=== PATIENT | female | born 1995 | race Caucasian/White ===

== ENCOUNTER → 2021-03-25 | Outpatient (REF) | payer OTHER, SELFPAY | LOC: M LAB REF 11:51 | PROVIDERS: ATTEND Obstetrics & Gynecology | DX: O08.0 Genital tract and pelvic infection following ectopic and molar pregnancy (principal) ==

== ENCOUNTER → 2022-01-13 | Outpatient (CLI) | payer OTHER | LOC: M WHC 10:38 | PROVIDERS: ATTEND Advanced Practice Midwife | DX: O24.919 Unspecified diabetes mellitus in pregnancy, unspecified trimester (principal) ==

== ENCOUNTER 2022-02-28 06:05 | Outpatient (CLI) | payer OTHER ==
[~2022-02-28] VITALS: Ht 162.6 cm; Wt 114.8 kg
[2022-02-28 06:37] VITALS: BP 128/78
[2022-02-28] MEDS ORDERED: MULTTAB20 PO (06:46)
== END 2022-02-28 09:36 | disposition home or self-care (01) ==
LOC: M LDO 06:05
PROVIDERS: ATTEND Obstetrics & Gynecology
DX: O47.1 False labor at or after 37 completed weeks of gestation (principal); O46.93 Antepartum hemorrhage, unspecified, third trimester; Z3A.39 39 weeks gestation of pregnancy; O24.419 Gestational diabetes mellitus in pregnancy, unspecified control; O99.213 Obesity complicating pregnancy, third trimester; E66.9 Obesity, unspecified
CPT/HCPCS: 59025; 76815; G0463

== ENCOUNTER 2022-03-03 05:53 | Outpatient (CLI) | payer OTHER ==
[~2022-03-03 05:53] MED LIST: MULTTAB20 PO
[2022-03-03 08:11] VITALS: BP 132/79
[2022-03-04] MEDS ORDERED: ACET325C5 PO (10:28)
== END 2022-03-03 09:28 | disposition home or self-care (01) ==
LOC: M LDO 05:53
PROVIDERS: ATTEND Obstetrics & Gynecology
DX: O47.1 False labor at or after 37 completed weeks of gestation (principal); O24.410 Gestational diabetes mellitus in pregnancy, diet controlled; Z3A.40 40 weeks gestation of pregnancy
CPT/HCPCS: 59025; G0463

== ENCOUNTER 2022-03-04 10:00 | Inpatient (IN) | payer OTHER ==
[2022-03-04] VITALS (35 sets, daily range): BP systolic 109–161; BP diastolic 55–100
[~2022-03-04] VITALS: Ht 165.1 cm; Wt 114.8 kg
[2022-03-04] MEDS ORDERED: ACET325C5 PO (10:28)
[2022-03-04] MEDS ORDERED: HOME MED LIST COMPLETE! XX SCH (10:30)
[2022-03-04] MEDS ORDERED: LACTATED RINGER'S 1000 ML IV STA (13:06)
[2022-03-04] MEDS ORDERED: OXYTOCIN INJ 10 UNITS/ML VIAL (J2590) IM PRN (13:10)
[2022-03-04] MEDS ORDERED: METHYLERGONOVINE MALEATE 0.2 MG/ML VIAL (J2210) IM PRN (13:10)
[2022-03-04] MEDS ORDERED: OXYTOCIN DRIP 30 UNITS in IV 1 EA IV SCH (13:10)
[2022-03-04] MEDS: LR 1,000 ML IV SCH ×4 (13:10→21:10)
[2022-03-04] MEDS ORDERED: TRANEXAMIC ACID INJection 1,000 MG in NS 100 ML IV PRN (13:10)
[2022-03-04] MEDS ORDERED: OXYTOCIN DRIP 30 UNITS in IV 1 EA IV PRN ×4 (13:10)
[2022-03-04] MEDS ORDERED: LIDOCAINE 1% MDV 20ML VIAL INFIL PRN (13:10)
[2022-03-04] MEDS ORDERED: CARBOPROST TROMETHAMINE 250 MCG/ML AMP IM PRN (13:10)
[2022-03-04 14:48] LABS: BASO # 0.1 10^3/uL (0.0-0.2); BASO % 0.5 % (0.0-1.0); EOS % 0.3 % (0.0-3.0); HEMATOCRIT 38.3 % (36.0-47.0); HEMOGLOBIN 13.1 g/dl (12.0-15.5); LYMPH # 1.6 10^3/uL (1.5-5.0); LYMPH % 13.7 % (24.0-44.0); MEAN CORPUSCULAR HEMOGLOBIN 29.4 pg (27.0-33.0); MEAN CORPUSCULAR HGB CONC 34.2 g/dl (32.0-36.5); MEAN CORPUSCULAR VOLUME 85.9 fl (80.0-96.0); MONO # 0.8 10^3/uL (0.0-0.8); MONO % 6.7 % (2.0-8.0); PLATELET COUNT, AUTOMATED 160 10^3/uL (150-450); RED BLOOD COUNT 4.46 10^6/uL (4.00-5.40); WHITE BLOOD COUNT 11.7 10^3/uL (4.0-10.0)
[2022-03-04] MEDS ORDERED: NALOXONE INJ 0.4MG/1ML VIAL (J2310 PER 1MG) IV PRN (15:40)
[2022-03-04] MEDS ORDERED: diphenhydrAMINE 50MG/ML VIAL (J1200) IV PRN (15:40)
[2022-03-04] MEDS ORDERED: ePHEDrine SULFATE 25 MG/5 ML(5MG/ML) SYRINGE IVP PRN (15:40)
[2022-03-04] MEDS ORDERED: ONDANSETRON 4MG 2ML VIAL IV PRN (15:40)
[2022-03-04] MEDS ORDERED: LR 500 ML IV PRN (15:40)
[2022-03-04] MEDS ORDERED: EPIDURAL/PCA KEYS XX PRN (15:40)
[2022-03-04] MEDS: FENTANYL/ROPIVACAINE/NACL BAG 100 ML EPIDURAL SCH ×2 (15:47→23:25)
[2022-03-04] MEDS ORDERED: OXYTOCIN 30 UNITS IN 0.9% NaCl 500ML IV BAG (J2590) As Ordered ONE (20:16)
[2022-03-04] MEDS ORDERED: ACETAMINOPHEN 500 MG TAB PO ONE (21:40)
[2022-03-05] VITALS (13 sets, daily range): BP systolic 113–156; BP diastolic 56–96
[2022-03-05] MEDS ORDERED: ACETAMINOPHEN TAB 650MG DOSE (2X325MG) PO PRN (05:05)
[2022-03-05] MEDS ORDERED: DIBUCAINE 1% OINTMENT 30GM TOP PRN (05:05)
[2022-03-05] MEDS ORDERED: ACETAMINOPHEN 500 MG TAB PO PRN (05:05)
[2022-03-05] MEDS ORDERED: OXYTOCIN DRIP 30 UNITS in IV 1 EA IV SCH (05:05)
[2022-03-05] MEDS ORDERED: ANUSOL HC CREAM 30GM TOP PRN (05:05)
[2022-03-05] MEDS ORDERED: RHOGAM 300 MCG (1500 IU) INJ (J2790) IM SCH (05:05)
[2022-03-05] MEDS ORDERED: IBUPROFEN 600MG TAB PO PRN (05:05)
[2022-03-05] MEDS ORDERED: METHYLERGONOVINE MALEATE 0.2 MG TAB PO PRN (05:05)
[2022-03-05] MEDS: LR 1,000 ML IV SCH ×3 (05:10→13:10)
[2022-03-05] MEDS: IBUPROFEN 800 MG TAB PO PRN ×2 (05:32→15:19)
[2022-03-05] MEDS: PRENATAL VITAMINS CHEWABLE TABLET PO SCH (08:16)
[2022-03-05] MEDS: DOCUSATE SODIUM 100MG CAPSULE PO SCH ×2 (08:16→21:00)
[2022-03-06 06:00] VITALS: BP 130/73
[2022-03-06 07:56] LABS: HEMATOCRIT 33.1 % (36.0-47.0); MEAN CORPUSCULAR HEMOGLOBIN 29.3 pg (27.0-33.0); MEAN CORPUSCULAR HGB CONC 33.2 g/dl (32.0-36.5); PLATELET COUNT, AUTOMATED 138 10^3/uL (150-450); RED BLOOD COUNT 3.76 10^6/uL (4.00-5.40); WHITE BLOOD COUNT 10.5 10^3/uL (4.0-10.0)
[2022-03-06] MEDS: PRENATAL VITAMINS CHEWABLE TABLET PO SCH (09:03)
[2022-03-06] MEDS: DOCUSATE SODIUM 100MG CAPSULE PO SCH ×2 (09:04→21:30)
[2022-03-06 18:00] VITALS: BP 144/85
[2022-03-07 05:55] VITALS: BP 138/81
[2022-03-07] MEDS: PRENATAL VITAMINS CHEWABLE TABLET PO SCH (08:33)
[2022-03-07] MEDS ORDERED: IBUP-1022 PO (08:52)
[2022-03-07] MEDS ORDERED: ACET1TAB55 PO (08:52)
[2022-03-07] MEDS ORDERED: MEASLES,MUMPS,RUBELLA VACCINE INJ (MMR-II) (90707) SC.IMMUN ONE (09:00)
== END 2022-03-07 12:02 | disposition home or self-care (01) | DRG 807 ==
LOC: M LDO 10:00 → M LDI 13:10 → M OBS 03-05 06:57
PROVIDERS: ADMIT Obstetrics & Gynecology; ATTEND Obstetrics & Gynecology
PROC: 10E0XZZ Delivery of Products of Conception, External Approach (ICD-10-PCS; principal; 2022-03-05)
PROC: 0KQM0ZZ Repair Perineum Muscle, Open Approach (ICD-10-PCS; 2022-03-05)
PROC: 10907ZC Drainage of Amniotic Fluid, Therapeutic from Products of Conception, Via Natural or Artificial Opening (ICD-10-PCS; 2022-03-05)
DX: O24.420 Gestational diabetes mellitus in childbirth, diet controlled (principal); Z37.0 Single live birth; O99.214 Obesity complicating childbirth; E66.9 Obesity, unspecified; Z3A.40 40 weeks gestation of pregnancy; O70.1 Second degree perineal laceration during delivery; O69.81X0 Labor and delivery complicated by cord around neck, without compression, not applicable or unspecified; O76 Abnormality in fetal heart rate and rhythm complicating labor and delivery

== ENCOUNTER 2023-02-26 15:21 | Outpatient (CLI) | payer OTHER ==
[~2023-02-26] VITALS: Ht 165.1 cm; Wt 116.0 kg
[~2023-02-26 15:21] MED LIST changes: +ACET1TAB55 PO; +ACET325C5 PO; +IBUP-1022 PO
[2023-02-26 15:46] VITALS: BP 132/72
[2023-02-26] MEDS ORDERED: HOME MED LIST COMPLETE! XX SCH (15:50)
[2023-02-26 16:26] VITALS: BP 115/69
== END 2023-02-26 17:17 | disposition home or self-care (01) ==
LOC: M LDO 15:21
PROVIDERS: ATTEND Obstetrics & Gynecology
DX: O36.8330 Maternal care for abnormalities of the fetal heart rate or rhythm, third trimester, not applicable or unspecified (principal); O13.3 Gestational [pregnancy-induced] hypertension without significant proteinuria, third trimester; Z3A.39 39 weeks gestation of pregnancy
CPT/HCPCS: 59025; G0463

== ENCOUNTER 2023-02-27 03:29 | Inpatient (IN) | payer OTHER ==
[2023-02-27] VITALS (12 sets, daily range): BP systolic 120–144; BP diastolic 60–94; O2SAT 93–100
[~2023-02-27] VITALS: Ht 162.6 cm; Wt 116.0 kg
[2023-02-27] MEDS ORDERED: HOME MED LIST COMPLETE! XX SCH (03:40)
[2023-02-27] MEDS ORDERED: LACTATED RINGER'S 1000 ML IV STA (03:47)
[2023-02-27] MEDS ORDERED: CARBOPROST TROMETHAMINE 250 MCG/ML AMP IM PRN (03:50)
[2023-02-27] MEDS ORDERED: METHYLERGONOVINE MALEATE 0.2MG/ML 1ML VIAL IM PRN ×2 (03:50→12:30)
[2023-02-27] MEDS ORDERED: OXYTOCIN INJ 10UNITS/ML 1ML VIAL IM PRN (03:50)
[2023-02-27] MEDS ORDERED: OXYTOCIN DRIP 30 UNITS in IV 1 EA IV PRN ×4 (03:50)
[2023-02-27] MEDS ORDERED: TRANEXAMIC ACID INJection 1,000 MG in NS 100 ML IV PRN (03:50)
[2023-02-27] MEDS ORDERED: LIDOCAINE 1% MDV 20ML VIAL INFIL PRN (03:50)
[2023-02-27 04:10] LABS: HEMATOCRIT 43.2 % (36.0-47.0); HEMOGLOBIN 14.7 g/dl (12.0-15.5); MEAN CORPUSCULAR HEMOGLOBIN 28.7 pg (27.0-33.0); MEAN CORPUSCULAR VOLUME 84.2 fl (80.0-96.0); PLATELET COUNT, AUTOMATED 186 10^3/uL (150-450); RED BLOOD COUNT 5.13 10^6/uL (4.00-5.40); WHITE BLOOD COUNT 10.5 10^3/uL (4.0-10.0)
[2023-02-27] MEDS ORDERED: FENTANYL/ROPIVACAINE/NACL BAG 100 ML EPIDURAL SCH (04:55)
[2023-02-27] MEDS ORDERED: ePHEDrine SULFATE 25 MG/5 ML(5MG/ML) SYRINGE IVP PRN (04:55)
[2023-02-27] MEDS ORDERED: NALOXONE INJ 0.4MG/1ML VIAL IV PRN (04:55)
[2023-02-27] MEDS ORDERED: diphenhydrAMINE 50MG/ML VIAL IV PRN (04:55)
[2023-02-27] MEDS ORDERED: ONDANSETRON 4MG 2ML VIAL IV PRN ×2 (04:55→12:30)
[2023-02-27] MEDS ORDERED: LR 500 ML IV PRN (04:55)
[2023-02-27] MEDS ORDERED: EPIDURAL/PCA KEYS XX PRN (04:55)
[2023-02-27] MEDS: LR 1,000 ML IV SCH (05:07)
[2023-02-27 12:01] LABS: CORD GAS ABE V -2.7; CORD GAS HCO3 V 24.6 MMOL/L; CORD GAS O2 SAT V 51.2 %; CORD GAS PCO2 V 51.3 mmHg; CORD GAS PH V 7.299 UNITS; CORD GAS SBC V 20.9 MMOL/L; CORD GAS TCO2 V 26.2 MMOL/L
[2023-02-27 12:04] LABS: CORD GAS ABE A -4.7; CORD GAS HCO3 A 25.3 MMOL/L; CORD GAS O2 SAT A 38.5 %; CORD GAS PCO2 A 65.8 mmHg; CORD GAS PH A 7.202 UNITS; CORD GAS PO2 A 19.4 mmHg; CORD GAS TCO2 A 27.3 MMOL/L
[2023-02-27] MEDS ORDERED: DIBUCAINE 1% OINTMENT 30GM TOP PRN (12:30)
[2023-02-27] MEDS ORDERED: DOCUSATE SODIUM 100MG CAPSULE PO PRN (12:30)
[2023-02-27] MEDS ORDERED: OXYTOCIN DRIP 30 UNITS in IV 1 EA IV SCH (12:30)
[2023-02-27] MEDS ORDERED: LR 1,000 ML IV SCH (12:30)
[2023-02-27] MEDS ORDERED: METOCLOPRAMIDE INJ 10MG/2ML VIAL IV PRN (12:30)
[2023-02-27] MEDS ORDERED: RHOGAM 300MCG (1500IU) INJ IM SCH (12:30)
[2023-02-27] MEDS: ACETAMINOPHEN 500 MG TAB PO SCH ×2 (16:01→18:42)
[2023-02-27] MEDS: IBUPROFEN 800 MG TAB PO SCH ×2 (16:05→21:40)
[2023-02-28] MEDS: ACETAMINOPHEN 500 MG TAB PO SCH ×4 (00:06→18:22)
[2023-02-28 02:00] VITALS: BP 123/73; O2SAT 97
[2023-02-28] MEDS: IBUPROFEN 800 MG TAB PO SCH ×3 (05:35→21:39)
[2023-02-28 06:00] VITALS: BP 124/73; O2SAT 98
[2023-02-28 07:42] LABS: HEMATOCRIT 38.1 % (36.0-47.0); HEMOGLOBIN 12.8 g/dl (12.0-15.5); MEAN CORPUSCULAR HGB CONC 33.6 g/dl (32.0-36.5); MEAN CORPUSCULAR VOLUME 86.4 fl (80.0-96.0); PLATELET COUNT, AUTOMATED 148 10^3/uL (150-450); RED BLOOD COUNT 4.41 10^6/uL (4.00-5.40); WHITE BLOOD COUNT 10.5 10^3/uL (4.0-10.0)
[2023-02-28] MEDS: PRENATAL VITAMINS CHEWABLE TABLET PO SCH (09:04)
[2023-02-28 10:00] VITALS: BP 127/74; O2SAT 98
[2023-02-28 14:00] VITALS: BP 139/85; O2SAT 98
[2023-02-28 18:00] VITALS: BP 118/76; O2SAT 96
[2023-02-28 22:00] VITALS: BP 125/76; O2SAT 97
[2023-03-01] MEDS: ACETAMINOPHEN 500 MG TAB PO SCH ×2 (00:12→07:09)
[2023-03-01 02:00] VITALS: BP 123/76; O2SAT 98
[2023-03-01] MEDS: IBUPROFEN 800 MG TAB PO SCH (05:18)
[2023-03-01 06:00] VITALS: BP 141/102; O2SAT 98
[2023-03-01 07:18] VITALS: BP 138/72
[2023-03-01] MEDS: PRENATAL VITAMINS CHEWABLE TABLET PO SCH (08:52)
[2023-03-01] MEDS ORDERED: MEASLES,MUMPS,RUBELLA VACCINE INJ (MMR-II) SC.IMMUN ONE (09:00)
[2023-03-01 10:26] VITALS: BP 138/73; O2SAT 97
== END 2023-03-01 11:50 | disposition home or self-care (01) | DRG 807 ==
LOC: M LDO 03:29 → M LDI 03:36 → M OBS 16:02
PROVIDERS: ADMIT Obstetrics & Gynecology; ATTEND Obstetrics & Gynecology
PROC: 10E0XZZ Delivery of Products of Conception, External Approach (ICD-10-PCS; principal; 2023-02-27)
PROC: 0KQM0ZZ Repair Perineum Muscle, Open Approach (ICD-10-PCS; 2023-02-27)
DX: O99.284 Endocrine, nutritional and metabolic diseases complicating childbirth (principal); Z37.0 Single live birth; O99.214 Obesity complicating childbirth; E66.9 Obesity, unspecified; O13.4 Gestational [pregnancy-induced] hypertension without significant proteinuria, complicating childbirth; E74.39 Other disorders of intestinal carbohydrate absorption; O24.420 Gestational diabetes mellitus in childbirth, diet controlled; O70.1 Second degree perineal laceration during delivery; Z3A.39 39 weeks gestation of pregnancy

== ENCOUNTER 2024-01-28 09:52 | Inpatient (IN) | payer OTHER ==
[~2024-01-28] VITALS: Ht 162.6 cm; Wt 111.2 kg
[2024-01-28] VITALS (18 sets, daily range): BP systolic 90–138; BP diastolic 53–78; O2SAT 100
[2024-01-28] MEDS ORDERED: HOME MED LIST COMPLETE! XX SCH (11:05)
[2024-01-28] MEDS ORDERED: LIDOCAINE 1% MDV 20ML VIAL INFIL PRN (12:25)
[2024-01-28] MEDS ORDERED: CARBOPROST TROMETHAMINE 250 MCG/ML AMP IM PRN (12:25)
[2024-01-28] MEDS ORDERED: METHYLERGONOVINE MALEATE 0.2MG/ML 1ML VIAL IM PRN (12:25)
[2024-01-28] MEDS ORDERED: TRANEXAMIC ACID INJection 1,000 MG in NS 100 ML IV PRN (12:25)
[2024-01-28] MEDS ORDERED: OXYTOCIN DRIP 30 UNITS in IV 1 EA IV PRN (12:25)
[2024-01-28] MEDS: LACTATED RINGER'S 1000 ML IV STA (12:35)
[2024-01-28 12:51] LABS: HEMATOCRIT 42.4 % (36.0-47.0); HEMOGLOBIN 14.7 g/dl (12.0-15.5); MEAN CORPUSCULAR HEMOGLOBIN 29.3 pg (27.0-33.0); MEAN CORPUSCULAR HGB CONC 34.7 g/dl (32.0-36.5); MEAN CORPUSCULAR VOLUME 84.5 fl (80.0-96.0); PLATELET COUNT, AUTOMATED 220 10^3/uL (150-450); RED BLOOD COUNT 5.02 10^6/uL (4.00-5.40)
[2024-01-28] MEDS ORDERED: EPIDURAL/PCA KEYS XX PRN (13:00)
[2024-01-28] MEDS ORDERED: ONDANSETRON 4MG 2ML VIAL IV PRN (13:00)
[2024-01-28] MEDS ORDERED: diphenhydrAMINE 50MG/ML VIAL IV PRN (13:00)
[2024-01-28] MEDS ORDERED: NALOXONE INJ 0.4MG/1ML VIAL IV PRN (13:00)
[2024-01-28] MEDS: FENTANYL/ROPIVACAINE/NACL BAG 100 ML EPIDURAL SCH (13:14)
[2024-01-28] MEDS: LR 500 ML IV PRN (13:31)
[2024-01-28] MEDS: LR 1,000 ML IV SCH (13:35)
[2024-01-28 13:53] LABS: HIV 1&2 SCREEN NEGATIVE (NEGATIVE)
[2024-01-28 14:01] LABS: HEPATITIS C VIRUS ABY INDEX < 0.02 INDEX (<0.8)
[2024-01-28] MEDS: ePHEDrine SULFATE 25 MG/5 ML(5MG/ML) SYRINGE IVP PRN (14:09)
[2024-01-28 15:54] LABS: HEPATITIS B SURFACE ANTIGEN NEGATIVE (NEGATIVE)
[2024-01-28] MEDS ORDERED: RHO(D) IMMUNE GLOBULIN/MALTOSE 500MCG(2500IU)/2.2ML VIAL (WINRHO) IM SCH (18:05)
[2024-01-28] MEDS ORDERED: ACETAMINOPHEN 500 MG TAB PO PRN (18:05)
[2024-01-28] MEDS ORDERED: MOM 30ML SUSPENSION UDC PO PRN (18:05)
[2024-01-28] MEDS ORDERED: METHYLERGONOVINE MALEATE 0.2 MG TAB PO PRN (18:05)
[2024-01-28] MEDS ORDERED: ANUSOL HC CREAM 30GM TOP PRN (18:05)
[2024-01-28] MEDS ORDERED: CALCIUM CARBONATE 500 MG CHEW U/D PO PRN (18:05)
[2024-01-28] MEDS: ACETAMINOPHEN TAB 650MG DOSE (2X325MG) PO PRN (19:09)
[2024-01-28] MEDS: DIBUCAINE 1% OINTMENT 30GM TOP PRN (21:02)
[2024-01-28] MEDS: DOCUSATE SODIUM 100MG CAPSULE PO PRN (21:02)
[2024-01-29] MEDS: IBUPROFEN 600MG TAB PO PRN (02:23)
[2024-01-29 06:00] VITALS: BP 98/53; O2SAT 99
[2024-01-29] MEDS: PRENATAL VITAMINS CHEWABLE TABLET PO SCH (07:55)
[2024-01-29] MEDS: IBUPROFEN 800 MG TAB PO PRN (07:56)
[2024-01-29 08:11] VITALS: BP 98/53; TEMP 97.4; O2SAT 99
[2024-01-29 16:00] VITALS: BP 130/78; O2SAT 98
[2024-01-29] MEDS ORDERED: KETOROLAC 30 MG/ML 1ML VIAL IV ONE (17:45)
[2024-01-29] MEDS ORDERED: FIORICET TAB PO PRN (18:10)
[2024-01-29] MEDS: FIORICET TAB PO ONE (18:19)
[2024-01-29] MEDS: NS 1,000 ML IV ONE (18:21)
[2024-01-29 18:30] LABS: ERYTHROCYTE SEDIMENTATION RATE 31 mm/hr (0-20)
[2024-01-29 18:33] LABS: BASO % 0.3 % (0.0-1.0); EOS # 0.1 10^3/uL (0.0-0.5); EOS % 1.1 % (0.0-3.0); HEMATOCRIT 37.3 % (36.0-47.0); HEMOGLOBIN 12.5 g/dl (12.0-15.5); LYMPH # 2.2 10^3/uL (1.5-5.0); LYMPH % 18.6 % (24.0-44.0); MEAN CORPUSCULAR HEMOGLOBIN 28.4 pg (27.0-33.0); MEAN CORPUSCULAR HGB CONC 33.5 g/dl (32.0-36.5); MEAN CORPUSCULAR VOLUME 84.8 fl (80.0-96.0); MONO # 0.7 10^3/uL (0.0-0.8); MONO % 6.4 % (2.0-8.0); NEUTROPHILS # 8.3 10^3/uL (1.5-8.5); NEUTROPHILS % 72.4 % (36.0-66.0); PLATELET COUNT, AUTOMATED 190 10^3/uL (150-450); WHITE BLOOD COUNT 11.5 10^3/uL (4.0-10.0)
[2024-01-29 19:02] LABS: ALBUMIN 2.3 G/DL (3.2-5.2); ALKALINE PHOSPHATASE 120 U/L (46-116); ALT/SGPT 14 U/L (7.0-40); AST/SGOT 23 U/L (<34); BILIRUBIN,TOTAL 0.3 MG/DL (0.3-1.2); BLOOD UREA NITROGEN 12 MG/DL (9-23); CALCIUM LEVEL 8.6 MG/DL (8.5-10.1); CARBON DIOXIDE LEVEL 24 MMOL/L (20-31); CHLORIDE LEVEL 107 MMOL/L (98-107); CREATININE FOR GFR 0.63 MG/DL (0.55-1.30); GLOMERULAR FILTRATION RATE > 60.0 (>60); GLUCOSE, FASTING 114 MG/DL (60-100); POTASSIUM SERUM 3.9 MMOL/L (3.5-5.1); SODIUM LEVEL 139 MMOL/L (136-145); TOTAL PROTEIN 5.5 G/DL (5.7-8.2)
[2024-01-29 19:03] LABS: FREE T4 0.91 NG/DL (0.89-1.76); THYROID STIMULATING HORMONE 0.951 uIU/ML (0.55-4.78)
[2024-01-29 19:04] LABS: FREE T3 2.9 PG/ML (2.3-4.2)
[2024-01-29 19:10] VITALS: BP_SYST 121; BP_DIAS 60; BP_DIAS 61; BP_DIAS 68
[2024-01-29] MEDS: NS 1,000 ML IV SCH (22:29)
[2024-01-29] MEDS: CEPHALEXIN 250MG CAPSULE PO SCH (22:48)
[2024-01-30 06:00] VITALS: BP 122/81; O2SAT 100
[2024-01-30 08:16] VITALS: BP 122/81; TEMP 98; O2SAT 100
[2024-01-30] MEDS: MEASLES,MUMPS,RUBELLA VACCINE INJ (MMR-II) SC.IMMUN ONE (09:00)
[2024-01-30] MEDS ORDERED: ACET-683 PO (11:57)
[2024-01-30] MEDS ORDERED: IBUP-1022 PO (11:57)
[2024-01-30] MEDS ORDERED: COLA100C5 PO (11:57)
[2024-01-30] MEDS: medroxyPROGESTERone ACET IM SUSP 150 MG/ML VIAL IM ONE (12:30)
== END 2024-01-30 13:15 | disposition home or self-care (01) | DRG 807 ==
LOC: M LDO 09:52 → M LDI 12:01 → M OBS 19:29
PROVIDERS: ADMIT Advanced Practice Midwife; ATTEND Advanced Practice Midwife
PROC: 10E0XZZ Delivery of Products of Conception, External Approach (ICD-10-PCS; principal; 2024-01-28)
DX: O80 Encounter for full-term uncomplicated delivery (principal); Z37.0 Single live birth; Z3A.38 38 weeks gestation of pregnancy; Z72.820 Sleep deprivation